=== PATIENT | female | born 1985 | race African-American/Black ===

== ENCOUNTER 2023-10-27 11:08 | Emergency (ER) | payer SELFPAY ==
[2023-10-27] MEDS ORDERED: Acetaminophen 325 MG TAB ONE ×2 (11:29→11:36)
[2023-10-27 11:40] LABS: #Basophils Less than 0.03 10x3/uL (0.0-0.2); %Basophils 0.6 % (0.0-1.0); %Eosinophils 1.7 % (0.0-10.0); %Lymphocytes 43.3 % (21.0-51.0); %Monocytes 9.1 % (0.0-10.0); Hematocrit 33.2 % (36.0-47.0); Hemoglobin 11.3 g/dL (12.0-16.0); Mean Corpuscular Volume 91.2 fL (78.0-98.0); Mean Platelet Volume 10.7 fL (7.4-10.4); Platelet Count 159 10x3/uL (130-400); Red Blood Cell (RBC) Count 3.64 mill/uL (4.20-5.40)
[2023-10-27 11:53] LABS: ALT (SGPT) 10 U/L (8-55); AST (SGOT) 14 U/L (5-34); Albumin 2.7 g/dL (3.5-5.0); Alkaline Phosphatase 43 U/L (40-110); Anion Gap 7 mmol/L (10-20); BUN (Urea Nitrogen) 12 mg/dL (7.0-18.7); Bilirubin, Total 0.3 mg/dL (0.2-1.2); Calc. Creatinine Clearance 0 mL/min (70-130); Calcium 7.3 mg/dL (7.8-10.44); Carbon Dioxide 23 mmol/L (22-29); Chloride 113 mmol/L (98-107); Estimated GFR 113; Glucose 82 mg/dL (70-105); Potassium 3.6 mmol/L (3.5-5.1); Protein, Total 4.7 g/dL (6.0-8.3); Sodium 139 mmol/L (136-145)
[2023-10-27 11:56] LABS: Troponin I Less than 0.010 ng/mL (< 0.028)
[2023-10-27 12:15] LABS: Pregnancy Test - Urine (BHCG) Negative (Negative); Pregu Control Background? CLEAR/WHITE (CLR/WHITE); Pregu Control Bar Appear? YES (CONTROL BAR); Specific Gravity 1.013 (1.002-1.036)
[2023-10-27 12:16] LABS: Bacteria/HPF 4+ HPF (None Seen); Bilirubin Negative (Negative); Blood, Urine Negative (Negative); CAUTI Indications for Culture Alt mental st,lethar; Clarity Turbid (Clear); Glucose, Urine (Dipstick) Normal (Negative); Ketone, Urine Negative (Negative); Leukocyte 500 Leu/uL (Negative); Nitrite 2+ (Negative); Protein, Urine (Dipstick) Negative (Neg-Trace); RBC/HPF 0-3 HPF (0-3); Specific Gravity, Urine 1.013 (1.002-1.036); Squamous Epithelial 0-3 HPF (0-3); Urobilinogen Normal mg/dL (Less than 2)
[2023-10-27 12:19] LABS: Amphetamine Not Detected (NotDetected); Barbiturates Screen Not Detected (NotDetected); Benzodiazepine Screen Not Detected (NotDetected); Cocaine Metabolite Screen Detected (NotDetected); Methadone Not Detected (NotDetected); Methamphetamine Not Detected (NotDetected); Opiate Screen Not Detected (NotDetected); Oxycodone Screen Not Detected (NotDetected); Phencyclidine (PCP) Not Detected (NotDetected); THC/Cannabinoid Screen Detected (NotDetected); Tricyclic Screen Not Detected (NotDetected); Urine Culture Reflex Yes Yes
[2023-10-27] MEDS ORDERED: Gentamicin 300 MG in Sodium Chloride 0.9% 100 ML IVPB SCH (14:00)
[2023-10-27] MEDS ORDERED: Gentamicin 300 MG, Admixture Fee 1 EACH in Sodium Chloride 0.9% 100 ML IVPB SCH (14:00)
== END 2023-10-27 16:26 | disposition home or self-care (01) ==
LOC: ERS 11:08
DX: I95.1 Orthostatic hypotension (principal); T40.5X1A Poisoning by cocaine, accidental (unintentional), initial encounter; N39.0 Urinary tract infection, site not specified; F17.210 Nicotine dependence, cigarettes, uncomplicated
CPT/HCPCS: 36415; 51701; 70450; 72125; 80053; 80306; 81001; 81025; 83605; 83880; 84484; 84702; 85025; 87077; 87086; 87186; 93005; 96361; 96365; J1580; J3490